=== PATIENT | male | born 1985 | race African-American/Black ===

== ENCOUNTER 2017-07-28 06:11 | Inpatient (IN) ==
[~2017-07-28 06:11] MED LIST: DEXAMETHASONE 4 MG/1 ML VIAL IV ONE
[2017-07-28] MEDS ORDERED: OXYMETAZOLINE 0.05% NASAL SPRAY 15 ML BOTTLE ONE (06:51)
[2017-07-28] MEDS ORDERED: LIDOCAINE 2%/EPI 20 ML VIAL ONE (06:51)
[2017-07-28] MEDS ORDERED: DIAZEPAM 5 MG TABLET PO ONE (07:33)
[2017-07-28] MEDS: LACTATED RINGERS 1,000 ML IV SCH ×2 (07:51→09:16)
[2017-07-28] MEDS ORDERED: DIAZEPAM 5 MG TABLET ONE (07:52)
[2017-07-28] MEDS ORDERED: MUPIROCIN 2% OINT 22 GM TUBE TOP ONE (08:51)
[2017-07-28] MEDS ORDERED: HYDROmorphone 2 MG/1 ML VIAL ONE (12:10)
[2017-07-28] MEDS ORDERED: ONDANSETRON 4 MG/2 ML VIAL ONE ×2 (12:10→13:49)
[2017-07-28] MEDS ORDERED: PROPOFOL 200 MG/20 ML VIAL IV ONE ×2 (12:13→13:49)
[2017-07-28] MEDS ORDERED: RACEPINEPHRINE 0.5 ML NEB RESP TX ONE ×2 (12:17→12:18)
[2017-07-28] MEDS ORDERED: PROPOFOL 1,000 MG/100 ML BOTTLE IV ONE (12:35)
[2017-07-28] MEDS: PROPOFOL 1,000 MG/100 ML BOTTLE IV SCH ×2 (13:20→18:31)
[2017-07-28] MEDS ORDERED: MIDAZOLAM 2 MG/2 ML VIAL ONE (13:48)
[2017-07-28] MEDS ORDERED: fentaNYL 100 MCG/2 ML VIAL ONE (13:48)
[2017-07-28] MEDS ORDERED: SUCCINYLCHOLINE 200 MG/10 ML VIAL ONE (13:49)
[2017-07-28] MEDS ORDERED: DEXAMETHASONE 20 MG/5 ML VIAL ONE (13:49)
[2017-07-28] MEDS ORDERED: LACTATED RINGERS 1,000 ML IV SCH (14:30)
[2017-07-28] MEDS: DEXAMETHASONE 4 MG/1 ML VIAL IV SCH ×2 (15:18→22:52)
[2017-07-28] MEDS: cefTRIAXone 1,000 MG in SYRINGE 1 EACH IV SCH (15:19)
[2017-07-28 15:39] LABS: Apearance,Urine CLEAR (Clear); Bilirubin,Urine Negative (Negative); Blood, Urine Negative (Negative); Glucose,Urine (UA) 50 mg/dL (Negative); Hyaline Casts,Urine 1 /LPF (0-3); Ketones,Urine Negative (Negative); Nitrite,Urine Negative (Negative); Protein,Urine Negative; Urine Color Straw (Yellow); Urine Specific Gravity 1.006 (1.001-1.035); Urine Urobilinogen < 2.0 EU/DL (0.2-1.0); WBC,Urine 1 /HPF (0-6)
[2017-07-28] MEDS ORDERED: FUROSEMIDE 40 MG/4 ML VIAL IV ONE (16:07)
[2017-07-28 16:13] LABS: ABG Base Excess 0.6 MMOL/L (-2.5-2.5); ABG HCO3 28.7 MMOL/L (20-26); ABG Oxygen Saturation 99.5 % (95-100); ABG PCO2 60.8 MM HG (35-48); ABG PH 7.292 (7.35-7.45); ABG PO2 395.2 MM HG (80-95); ABG TCO2 30.6 MMOL/L (23-27)
[2017-07-28 16:30] LABS: Basophils % 0.1 % (0.0-0.8); Hematocrit 43.6 VOL% (42.0-52.0); Hemoglobin 14.6 GM/DL (14.0-18.0); Immature Granulocytes % 0.5 %; Immature Granulocytes Absolute 0.08 #; Lymphocytes # 0.6 10*3/uL (1.4-4.0); Lymphocytes % 3.9 % (21.2-54.2); Mean Corpuscular HGB Conc 33.5 GM/DL (32-36); Mean Corpuscular Hemoglobin 31 PG (27-34); Mean Corpuscular Volume 93.6 FL (87-102); Mean Platelet Volume 10.6 FL (9.6-12.0); Monocytes # 0.8 10*3/uL (0.11-0.8); Monocytes % 4.9 % (1.7-12.7); Neutrophils # 14.3 10*3/uL (1.4-7.4); Neutrophils % 90.6 % (38.7-73.9); Platelet Count 203 T/CUMM (130-400); Red Blood Count 4.66 MC/CUMM (3.8-5.5); White Blood Count 15.8 T/CUMM (4-12)
[2017-07-28] MEDS: PANTOPRAZOLE 40 MG VIAL IV SCH (16:35)
[2017-07-28 16:52] LABS: Calcium 8.5 MG/DL (8.5-10.1); Osmolality,Calculated 281.4 MOS/KG (273-304); Potassium 4.5 MMOL/L (3.5-5.1)
[2017-07-29] MEDS: PROPOFOL 1,000 MG/100 ML BOTTLE IV SCH ×4 (00:05→14:29)
[2017-07-29] MEDS: cefTRIAXone 1,000 MG in SYRINGE 1 EACH IV SCH ×2 (02:41→14:29)
[2017-07-29] MEDS: DEXAMETHASONE 4 MG/1 ML VIAL IV SCH ×2 (05:38→14:29)
[2017-07-29] MEDS: SODIUM CHLORIDE 0.9% 1,000 ML IV SCH ×2 (07:56→23:18)
[2017-07-29] MEDS: PANTOPRAZOLE 40 MG VIAL IV SCH (08:52)
[2017-07-29] MEDS: FLUTICASONE 50 MCG NASAL SPRAY 16 GM BOTTLE BOTH NARES SCH (08:52)
[2017-07-29] MEDS: ALBUTEROL/IPRATROPIUM 3 ML NEB RESP TX SCH ×3 (14:59→23:59)
[2017-07-29 16:00] LABS: ABG Base Excess 3.3 MMOL/L (-2.5-2.5); ABG HCO3 27.8 MMOL/L (20-26); ABG Oxygen Saturation 99.1 % (95-100); ABG PH 7.439 (7.35-7.45); ABG PO2 190.4 MM HG (80-95); ABG TCO2 29.1 MMOL/L (23-27); Allen Test Positive; Pt O2 Delivery Device Ventilator
[2017-07-29] MEDS ORDERED: MORPHINE 10 MG/1 ML VIAL IV PRN (16:40)
[2017-07-29] MEDS: IBUPROFEN 600 MG TABLET PO SCH (20:14)
[2017-07-30] MEDS: cefTRIAXone 1,000 MG in SYRINGE 1 EACH IV SCH (02:42)
[2017-07-30] MEDS: ALBUTEROL/IPRATROPIUM 3 ML NEB RESP TX SCH (08:40)
[2017-07-30] MEDS: FLUTICASONE 50 MCG NASAL SPRAY 16 GM BOTTLE BOTH NARES SCH (09:35)
[2017-07-30] MEDS: PANTOPRAZOLE 40 MG VIAL IV SCH (09:36)
[2017-07-30] MEDS: IBUPROFEN 600 MG TABLET PO SCH (09:36)
[2017-07-30 13:07] VITALS: BP 116/70
== END 2017-07-30 13:00 | disposition home or self-care (01) | DRG 981 ==
LOC: N.OR 06:11 → N.SDSINP 07:25 → N.ICU 14:29 → N.2E 07-30 05:42
PROVIDERS: ADMIT Otolaryngology; ATTEND Otolaryngology